=== PATIENT | male | born 1995 | race Two or more races ===

== ENCOUNTER 2019-08-23 19:00 | Emergency (ER) | payer MEDICAID ==
[~2019-08-23] VITALS: Ht 180.3 cm; Wt 76.0 kg
[2019-08-23] MEDS ORDERED: ALBU8HFA IH (19:08)
[2019-08-23 21:00] VITALS: BP 124/69
== END 2019-08-23 21:55 | disposition home or self-care (01) ==
LOC: EMS 19:00
DX: R05 Cough (principal); R50.9 Fever, unspecified; Z20.828 Contact with and (suspected) exposure to other viral communicable diseases; F17.210 Nicotine dependence, cigarettes, uncomplicated
CPT/HCPCS: 71045; 99284; U0003